=== PATIENT | male | born 1960 | race Caucasian/White ===

== ENCOUNTER 2018-12-16 17:33 | Inpatient (IN) | payer SELFPAY ==
--- NOTE | 2018-12-16 18:19 | RADIOLOGY REPORT (SQ) ---
EXAM DESCRIPTION: CHEST SINGLE VIEW COMPLETED DATE/TIME: 12/16/2018 6:10 pm REASON FOR STUDY: t2 aloc r/o stroke COMPARISON: None. EXAM PARAMETERS: NUMBER OF VIEWS: One view. TECHNIQUE: Single frontal radiographic view of the chest acquired. RADIATION DOSE: NA LIMITATIONS: None. FINDINGS: LUNGS AND PLEURA: No opacities, masses or pneumothorax. No pleural effusion. MEDIASTINUM AND HILAR STRUCTURES: No masses. Contour normal. HEART AND VASCULAR STRUCTURES: Heart normal in size. Normal vasculature. BONES: No acute findings. HARDWARE: None in the chest. OTHER: No other significant finding. IMPRESSION: NO ACUTE RADIOGRAPHIC FINDING IN THE CHEST. TECHNICAL DOCUMENTATION: JOB ID: [id number] [employer]- All Rights Reserved Reading location - IP/workstation name: [email or web address]
--- NOTE | 2018-12-16 18:33 | RADIOLOGY REPORT (SQ) ---
EXAM DESCRIPTION: CT HEAD WITHOUT COMPLETED DATE/TIME: 12/16/2018 6:21 pm REASON FOR STUDY: headache worst , altered COMPARISON: None. TECHNIQUE: Axial images acquired through the brain without intravenous contrast. Images reviewed wi th bone, brain and subdural windows. Additional sagittal and coronal reconstructions were generated. Images stored on PACS. All CT scanners at this facility use dose modulation, iterative reconstruction, and/or weight based d osing when appropriate to reduce radiation dose to as low as reasonably achievable (ALARA). [facility]: Dose Right [facility]: CareDose [facility]: Dose Right [facility]: Teradose 4D [facility]: [employer] RADIATION DOSE: CT Rad equipment meets quality standard of care and radiation dose reduction techniq ues were employed. CTDIvol: 53.2 mGy. DLP: 1070 mGy-cm. mGy. LIMITATIONS: None. FINDINGS: VENTRICLES: Normal size and contour. CEREBRUM: No masses. No hemorrhage. No midline shift. No evidence for acute infarction. Normal gra y/white matter differentiation. No areas of low density in the white matter. CEREBELLUM: No masses. No hemorrhage. No alteration of density. No evidence for acute infarction. EXTRAAXIAL SPACES: No fluid collections. No masses. ORBITS AND GLOBE: No intra- or extraconal masses. Normal contour of globe without masses. CALVARIUM: No fracture. PARANASAL SINUSES: Right maxillary sinus disease. SOFT TISSUES: No mass or hematoma. OTHER: No other significant finding. IMPRESSION: NORMAL BRAIN CT WITHOUT CONTRAST. EVIDENCE OF ACUTE STROKE: NO. COMMENT: Quality ID # [id number]: Final reports with documentation of one or more dose reduction techniques (e.g., Automated exposure control, adjustment of the mA and/or kV according to patient size, use of iterative reconstruction technique) TECHNICAL DOCUMENTATION: JOB ID: [id number] [employer]- All Rights Reserved Reading location - IP/workstation name: [email or web address]
--- NOTE | 2018-12-16 18:38 | EKG REPORT ---
SEVERITY:- NORMAL ECG - SINUS RHYTHM : Confirmed by: Antonia Terrazas MD 16-Dec-2018 18:37:05
--- NOTE | 2018-12-16 18:39 | ER Document Report ---
ED General - General Chief Complaint: Altered Mental Status Stated Complaint: POSSIBLE ETOH Time Seen by Provider: 12/16/18 18:27 Cannot obtain history due to: Altered mental status Notes: Patient is a 58-year-old male with no reported past medical history who presents by EMS due to altered mental status. The patient himself is unable to provide meaningful history. Please review course section for further history is provided by nursing assessment. In summary the patient apparently did not show for work for the past 6 days, staff from his workplace ejection, multiple occasions, found him to be wearing the same close and not apparently eating. Today when they checked on him they became extremely concerned given that he had still not change his clothes since Sunday of last week prompting him to contact EMS for transport to the hospital. TRAVEL OUTSIDE OF THE [place] IN LAST 30 DAYS: No - Related Data Allergies/Adverse Reactions: No Known Allergies Allergy (Unverified 12/16/18 22:38) Past Medical History - General Information source: Emergency Med Personnel - Social History Smoking Status: Current Every Day Smoker Frequency of alcohol use: Heavy Drug Abuse: None Lives with: Alone Family History: Reviewed & Not Pertinent Review of Systems - Review of Systems -: Yes ROS unobtainable due to patient's medical condition Physical Exam - Vital signs Vitals: Resp 19 12/16/18 17:38 Interpretation: Normal Notes: PHYSICAL EXAMINATION: GENERAL: Somewhat disheveled, appears generally unwell HEAD: Atraumatic, normocephalic. EYES: Pupils equal round and reactive to light, extraocular movements intact, sclera anicteric, conjunctiva are normal. ENT: nares patent, oropharynx clear without exudates. Moderate dry mucous membranes. NECK: Normal range of motion, supple without lymphadenopathy LUNGS: Breath sounds clear to auscultation bilaterally and equal. No wheezes rales or rhonchi. HEART: Regular rate and rhythm without murmurs ABDOMEN: Soft, nontender, normoactive bowel sounds. No guarding, no rebound. No masses appreciated. EXTREMITIES: Normal range of motion, no pitting or edema. No cyanosis. NEUROLOGICAL: Face symmetric. Tongue protrudes midline. Extraocular motions intact. Pupils are 2 mm and equally reactive. Somewhat slowed speech, normal gait. 5 out of 5 strength in both the distal and proximal upper and lower extremities bilaterally. Sensation is grossly intact throughout. Finger to nose testing normal. Pronator drift normal. PSYCH: Disoriented, oriented only to person SKIN: Warm, Dry, normal turgor, no rashes or lesions noted. Course - Re-evaluation Re-evalutation: 12/16/18 18:37 Patient presents altered, does not know the month or year, initially believes that Solo is still president but does correct himself several moments later. The patient apparently did not show for work since Sunday of last week and staff members had checked on him at his house on several occasions, found that he had not changed his clothing and became concerned that it appeared that the patient was very confused. On exam the patient is speaking clearly without any aphasia or dysarthria. He has no focal neurologic deficits on exam. He does appear quite dehydrated. Denies any alcohol or drug use other than occasional alcoholic beverages states he does not drink daily and has no history of alcohol withdrawal. CT the head without any evidence of intracranial bleed or mass. Chest x-ray is clear. Labs are pending. Differential is broad including toxic, rhabdomyolysis with associated uremia and renal failure, elevated ammonia with associated underlying liver failure, alcohol withdrawal. Seems very unlikely to be an encephalitis or meningitis given absence of fever, tachycardia and duration of symptoms. Will continue to monitor closely and reassess. 12/16/18 20:00 Patient's alcohol level has returned elevated and when I reassessed the patient he does admit that he drinks much more than he initially disclosed. The patient's picture at this point is quite consistent with Wernicke's encephalopathy. It does not appear that the patient has yet developed Korsakoff syndrome there is not appear to be any component of confabulation, he does not seem to try to be making anything up about what happened over the last several days and is very clear to state that he has no idea what is happened over the last 6 days. He has begun on IV thiamine [address] Haskins the hospitalist for admission. 12/16/182199 The patient apparently wanted to leave AGAINST MEDICAL ADVICE. The patient does not have capacity. He is unable to understand the risks and benefits of that decision at this point, is still disoriented, does not know the current year, month. I discussed with Dr. Haskins and the patient will be placed under involuntary commitment for his safety. - Vital Signs Vital signs: Temp Pulse Resp BP Pulse Ox 16 137/88 H 96 12/17/18 02:31 12/17/18 02:31 12/17/18 02:31 - Laboratory Result Diagrams: 12/16/18 18:33 12/16/18 18:33 Laboratory results interpreted by me: 12/16/18 12/16/18 12/16/18 17:53 18:33 18:33 Chloride 97 L Glucose 124 H POC Glucose 134 H AST 102 H ALT 103 H Creatine Kinase 50 L 48 L Urine Urobilinogen 12/16/18 20:16 Chloride Glucose POC Glucose AST ALT Creatine Kinase Urine Urobilinogen 2.0 H - Diagnostic Test Radiology reviewed: Image reviewed, Reports reviewed Radiology results interpreted by me: 12/16/18 18:40 CT head: No acute intracranial bleed or mass Chest x-ray: No acute infiltrate - EKG Interpretation by Me Additional EKG results interpreted by me: 12/16/18 18:40 Sinus rhythm, rate 89. QTC 434. No ST elevations or depressions. Discharge - Discharge Clinical Impression: Wernickes encephalopathy, Alcohol abuse Altered mental status Qualifiers: Altered mental status type: disorientation Qualified Code(s): R41.0 - Disorientation, unspecified Condition: Fair Disposition: ADMITTED INPATIENT Admitting Provider: Hospitalist Unit Admitted: Telemetry
[2018-12-16 18:47] LABS: ABSOLUTE EOSINOPHILS # (AUTO) 0.1 10^3/uL (0.0-0.6); ABSOLUTE LYMPHOCYTES (AUTO) 2.1 10^3/uL (0.5-4.7); ABSOLUTE MONOCYTES (AUTO) 0.5 10^3/uL (0.1-1.4); BASOPHILS % (AUTO) 0.3 % (0-2); EOSINOPHILS % (AUTO) 1.5 % (0-6); HEMATOCRIT 49.2 % (37.9-51.0); HEMOGLOBIN 16.6 g/dL (13.5-17.0); LYMPHOCYTES % (AUTO) 44.4 % (13-45); MEAN CORPUSCULAR HEMOGLOBIN 30.4 pg (27.0-33.4); MEAN CORPUSCULAR HGB CONC 33.8 g/dL (32.0-36.0); MEAN CORPUSCULAR VOLUME 90 fl (80-97); MONOCYTES % (AUTO) 10.8 % (3-13); PLATELET COUNT 195 10^3/uL (150-450); RED BLOOD COUNT 5.47 10^6/uL (4.35-5.55); RED CELL DISTRIBUTION WIDTH 13.2 % (11.5-14.0); TOTAL CELLS COUNTED % (AUTO) 100 %; WHITE BLOOD COUNT 4.8 10^3/uL (4.0-10.5)
[2018-12-16 19:06] LABS: ALANINE AMINOTRANSFERASE 103 U/L (21-72); ALBUMIN 4.7 g/dL (3.5-5.0); ALCOHOL 163 mg/dL (NONE DETECTED); ALKALINE PHOSPHATASE 121 U/L (38-126); ANION GAP 13 (5-19); ASPARTATE AMINO TRANSFERASE 102 U/L (17-59); BILIRUBIN,DIRECT 0.3 mg/dL (0.0-0.4); BILIRUBIN,TOTAL 0.8 mg/dL (0.2-1.3); BLOOD UREA NITROGEN 8 mg/dL (7-20); CALCIUM 9.3 mg/dL (8.4-10.2); CARBON DIOXIDE 30 mmol/L (22-30); CHLORIDE 97 mmol/L (98-107); CREATINE KINASE 50 U/L (55-170); GLUCOSE 124 mg/dL (75-110); POTASSIUM 4.7 mmol/L (3.6-5.0); TOTAL PROTEIN 7.8 g/dL (6.3-8.2)
[2018-12-16] MEDS ORDERED: THIAMINE HCL 500 MG in NORMAL SALINE 250 ML IV SCH ×2 (20:00→22:00)
[2018-12-16] MEDS ORDERED: MAGNESIUM HYDROXIDE SUSP 30 ML UDCUP PO PRN (20:05)
[2018-12-16] MEDS ORDERED: IPRATROPIUM/ALBUTEROL 0.5-2.5 MG/3 ML AMPUL NEB PRN (20:05)
[2018-12-16 20:28] LABS: APPEARANCE,URINE CLEAR; BILIRUBIN,URINE NEGATIVE (NEGATIVE); COLOR,URINE YELLOW; GLUCOSE, URINE NEGATIVE (NEGATIVE); KETONES,URINE NEGATIVE (NEGATIVE); LEUKOCYTE ESTERASE,URINE NEGATIVE (NEGATIVE); NITRITE,URINE NEGATIVE (NEGATIVE); PROTEIN,URINE NEGATIVE (NEGATIVE); URINE SPECIFIC GRAVITY 1.005
[2018-12-16 20:45] LABS: URINE AMPHETAMINES SCREEN NEGATIVE; URINE BARBITURATES SCREEN NEGATIVE; URINE BENZODIAZEPINES SCREEN NEGATIVE; URINE COCAINE SCREEN NEGATIVE; URINE MARIJUANA (THC) SCREEN UNCONFIRMED POSITIVE; URINE METHADONE SCREEN NEGATIVE; URINE PHENCYCLIDINE SCREEN NEGATIVE
[2018-12-16 20:45] LABS: PHOSPHORUS 4.4 mg/dL (2.5-4.5)
[2018-12-16] MEDS ORDERED: LACTULOSE SYRUP 20 GM/30 ML UDCUP PO ONE (21:00)
[2018-12-16] MEDS ORDERED: LORAZEPAM INJ 2 MG/1 ML VIAL IV ONE (22:50)
[2018-12-16] MEDS: DIAZEPAM 5 MG TABLET PO SCH (22:58)
[2018-12-16] MEDS: HEPARIN SOD (PORCINE) 5,000 UNIT/ML 1 ML SYRINGE SUBCUT SCH (23:47)
[2018-12-17] MEDS: IPRATROPIUM/ALBUTEROL 0.5-2.5 MG/3 ML AMPUL NEB SCH ×4 (00:10→23:30)
[2018-12-17] MEDS: LORAZEPAM INJ 2 MG/1 ML VIAL IV PRN ×3 (01:54→21:52)
--- NOTE | 2018-12-17 03:47 | PDOC H&P ---
History of Present Illness Admission Date/PCP: 12/16/18 20:32 Patient complains of: Amnesia History of Present Illness: MARY RUDOLPH is a 58 year old male with a past medical history of alcoholism who is a [place] resident visiting [facility] for work. He is found by his coworkers after several days of work absence. He is found lethargic, confused and amnesic. In the emergency room he is found with alcohol intoxication but awake and alert oriented x2 unable to recall events of the last week. He denies past medical history, current medications, headache fever stiff neck. Patient does admit a history of alcohol withdrawal with seizure approximately 6 months ago. Past Medical History Psychiatric Medical History: Reports: Alcohol Dependency, Depression Past Surgical History Past Surgical History: Reports: None Social History Information Source: Patient, [facility] Records Lives with: Alone Smoking Status: Never Smoker Frequency of Alcohol Use: Heavy Hx Recreational Drug Use: No Drugs: Marijuana Hx Prescription Drug Abuse: No - Advance Directive Resuscitation Status: Full Code Family History Family History: CAD, CVA, Other - Alcoholism Parental Family History Reviewed: Yes Children Family History Reviewed: Yes Sibling(s) Family History Reviewed.: Yes Medication/Allergy Allergies/Adverse Reactions: No Known Allergies Allergy (Unverified 12/16/18 22:38) Review of Systems ROS unobtainable: Due to mental status - Unable to recall Physical Exam Vital Signs: Temp Pulse Resp BP Pulse Ox 16 137/88 H 96 12/17/18 02:31 12/17/18 02:31 12/17/18 02:31 Intake & Output 12/15/18 12/16/18 12/17/18 11:59 11:59 11:59 Intake Total 255 Balance 255 Weight 25.6 kg General appearance: PRESENT: no acute distress, cooperative, disheveled, thin, other - Severe facial seborrheic dermatitis Head exam: PRESENT: atraumatic, normocephalic Eye exam: PRESENT: conjunctiva pink, EOMI, PERRLA. ABSENT: scleral icterus Ear exam: PRESENT: normal external ear exam Mouth exam: PRESENT: moist, tongue midline Neck exam: ABSENT: carotid bruit, JVD, lymphadenopathy, thyromegaly Respiratory exam: PRESENT: clear to auscultation janell. ABSENT: rales, rhonchi, wheezes Cardiovascular exam: PRESENT: RRR. ABSENT: diastolic murmur, rubs, systolic murmur Pulses: PRESENT: normal dorsalis pedis pul Vascular exam: PRESENT: normal capillary refill GI/Abdominal exam: PRESENT: normal bowel sounds, soft. ABSENT: distended, guarding, mass, organolmegaly, rebound, tenderness Rectal exam: PRESENT: deferred Extremities exam: PRESENT: full ROM, +1 edema. ABSENT: calf tenderness, clubbing, pedal edema Neurological exam: PRESENT: alert, altered, awake, oriented to person, CN II-XII grossly intact, other - Unable to recall events over the last 5-6 days. ABSENT: oriented to place, oriented to time, oriented to situation Skin exam: PRESENT: dry, intact, warm. ABSENT: cyanosis, rash Results Laboratory Results: 12/16/18 18:33 12/16/18 18:33 12/16/18 12/16/18 12/16/18 18:33 18:33 18:33 WBC 4.8 RBC 5.47 Hgb 16.6 Hct 49.2 MCV 90 MCH 30.4 MCHC 33.8 RDW 13.2 Plt Count 195 Seg Neutrophils % 43.0 Lymphocytes % 44.4 Monocytes % 10.8 Eosinophils % 1.5 Basophils % 0.3 Absolute Neutrophils 2.0 Absolute Lymphocytes 2.1 Absolute Monocytes 0.5 Absolute Eosinophils 0.1 Absolute Basophils 0.0 Sodium 140.0 Potassium 4.7 Chloride 97 L Carbon Dioxide 30 Anion Gap 13 BUN 8 Creatinine 0.62 Est GFR ( Amer) > 60 Est GFR (Non-Af Amer) > 60 Glucose 124 H Lactic Acid Calcium 9.3 Phosphorus Total Bilirubin 0.8 AST 102 H ALT 103 H Alkaline Phosphatase 121 Ammonia Total Protein 7.8 Albumin 4.7 TSH 0.93 Urine Color Urine Appearance Urine pH Ur Specific [place] Urine Protein Urine Glucose (UA) Urine Ketones Urine Blood Urine Nitrite Ur Leukocyte Esterase Urine WBC (Auto) 12/16/18 12/16/18 12/16/18 18:33 20:16 21:26 WBC RBC Hgb Hct MCV MCH MCHC RDW Plt Count Seg Neutrophils % Lymphocytes % Monocytes % Eosinophils % Basophils % Absolute Neutrophils Absolute Lymphocytes Absolute Monocytes Absolute Eosinophils Absolute Basophils Sodium Potassium Chloride Carbon Dioxide Anion Gap BUN Creatinine Est GFR ( Amer) Est GFR (Non-Af Amer) Glucose Lactic Acid 1.8 Calcium Phosphorus 4.4 Total Bilirubin AST ALT Alkaline Phosphatase Ammonia Total Protein Albumin TSH Urine Color YELLOW Urine Appearance CLEAR Urine pH 6.0 Ur Specific [place] 1.005 Urine Protein NEGATIVE Urine Glucose (UA) NEGATIVE Urine Ketones NEGATIVE Urine Blood NEGATIVE Urine Nitrite NEGATIVE Ur Leukocyte Esterase NEGATIVE Urine WBC (Auto) 2 12/16/18 21:26 WBC RBC Hgb Hct MCV MCH MCHC RDW Plt Count Seg Neutrophils % Lymphocytes % Monocytes % Eosinophils % Basophils % Absolute Neutrophils Absolute Lymphocytes Absolute Monocytes Absolute Eosinophils Absolute Basophils Sodium Potassium Chloride Carbon Dioxide Anion Gap BUN Creatinine Est GFR ( Amer) Est GFR (Non-Af Amer) Glucose Lactic Acid Calcium Phosphorus Total Bilirubin AST ALT Alkaline Phosphatase Ammonia < 8.7 L Total Protein Albumin TSH Urine Color Urine Appearance Urine pH Ur Specific [place] Urine Protein Urine Glucose (UA) Urine Ketones Urine Blood Urine Nitrite Ur Leukocyte Esterase Urine WBC (Auto) 12/16/18 12/16/18 12/16/18 18:33 18:33 18:33 Creatine Kinase 50 L 48 L Troponin I < 0.012 Impressions: Head CT 12/16/18 00:00 IMPRESSION: NORMAL BRAIN CT WITHOUT CONTRAST. EVIDENCE OF ACUTE STROKE: NO. Chest X-Ray 12/16/18 17:40 IMPRESSION: NO ACUTE RADIOGRAPHIC FINDING IN THE CHEST. Assessment & Plan - Diagnosis (1) Alcohol abuse Is this a current diagnosis for this admission?: Yes Plan: With history of alcohol withdrawal, thiamine and Ativan as needed (2) Altered mental status Qualifiers: Altered mental status type: disorientation Qualified Code(s): R41.0 - Disorientation, unspecified Is this a current diagnosis for this admission?: Yes Plan: Multifactorial, acute alcohol intoxication and cannabis use (3) Wernickes encephalopathy Is this a current diagnosis for this admission?: Yes Plan: Strongly suggested by history. Supportive care, thiamine and folate, physical therapy evaluation - Time Time Spent: 50 to 70 Minutes - Inpatient Certification Medical Necessity: Need Close Monitoring Due to Risk of Patient Decompensation
[2018-12-17] MEDS: HEPARIN SOD (PORCINE) 5,000 UNIT/ML 1 ML SYRINGE SUBCUT SCH ×3 (05:21→21:43)
[2018-12-17 07:36] LABS: HEMATOCRIT 43.1 % (37.9-51.0); HEMOGLOBIN 14.7 g/dL (13.5-17.0); MEAN CORPUSCULAR HEMOGLOBIN 30.7 pg (27.0-33.4); MEAN CORPUSCULAR HGB CONC 34.1 g/dL (32.0-36.0); MEAN CORPUSCULAR VOLUME 90 fl (80-97); PLATELET COUNT 193 10^3/uL (150-450); RED BLOOD COUNT 4.79 10^6/uL (4.35-5.55); RED CELL DISTRIBUTION WIDTH 13.3 % (11.5-14.0); WHITE BLOOD COUNT 5.6 10^3/uL (4.0-10.5)
[2018-12-17 07:58] LABS: ALANINE AMINOTRANSFERASE 86 U/L (21-72); ALKALINE PHOSPHATASE 91 U/L (38-126); ANION GAP 6 (5-19); ASPARTATE AMINO TRANSFERASE 87 U/L (17-59); BILIRUBIN,DIRECT 0.2 mg/dL (0.0-0.4); BILIRUBIN,TOTAL 1.2 mg/dL (0.2-1.3); BLOOD UREA NITROGEN 13 mg/dL (7-20); CALCIUM 9.2 mg/dL (8.4-10.2); CARBON DIOXIDE 32 mmol/L (22-30); CHLORIDE 100 mmol/L (98-107); GLUCOSE 128 mg/dL (75-110); POTASSIUM 4.5 mmol/L (3.6-5.0); SODIUM 138.4 mmol/L (137-145)
[2018-12-17] MEDS: DIAZEPAM 5 MG TABLET PO SCH ×2 (09:39→21:10)
[2018-12-17] MEDS: DOCUSATE SODIUM 100 MG CAPSULE PO SCH ×2 (09:39→17:51)
[2018-12-17] MEDS ORDERED: THIAMINE HCL 100 MG, FOLIC ACID 1 MG in NORMAL SALINE 250 ML IV SCH (10:00)
[2018-12-17] MEDS: NORMAL SALINE 1000 ML 1,000 ML IV PRN ×2 (10:05→20:05)
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
[2018-12-17] MEDS ORDERED: IBUPROFEN 600 MG TABLET PO PRN (16:13)
[2018-12-17] MEDS: FOLIC ACID 1 MG TABLET PO SCH (17:52)
--- NOTE | 2018-12-17 20:19 | Progress Note ---
Provider Note Provider Note: 58 y.o. M admitted to [facility] for AMS. The patient is from [place] but is currently living/working in [place]. 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 When they went to his apartment, he was wearing the same clothes for multiple days, disheveled, and there was no food in his cabinets. There were reportedly multiple open containers of beer. The patient arrived to the ED lethargic and unable to accurately answer questions. Initial diagnosis was Wernike's encephalopathy. Upon evaluation this morning, the patient is awake, alert, oriented x 3. He is able to follow commands. PERRLA. 5/5 strength in all 4 extremities. GCS 15. The patient does not admit to how much alcohol he has been drinking on a daily basis, but he does state that his last ETOH intake was Sunday. According to ED MD, the patient admitted to a hx of ETOH w/d seizures. The patient was evaluated by psych (at the request of the smocking machine operator), who recommend Depakote 500mg PO BID. 1. AMS - unlikely Wernike's encephalopathy given the patient's improving mental status. Additionally, co-workers report the patient is normally very reliable, punctual, and does not exhibit any cognitive decline. It is more likely that the patient was binge drinking over the course of many days. Head CT negative. Neuro exam relatively benign, patient states he 'can't remember' how much he has been drinking over the last few days. 2. ETOH use - blood alcohol level upon admission was 139. Daily folate and thiamine. Scheduled valium. PRN ativan. Plan: If the patient does not exhibit ETOH w/d, anticipate discharge home tomorrow. If the patient begins to demonstrate ETOH w/d, will need to remain inpatient.
[2018-12-17] MEDS: DIVALPROEX SODIUM 500 MG TAB.SR.24H PO SCH (21:43)
[2018-12-18] MEDS: HEPARIN SOD (PORCINE) 5,000 UNIT/ML 1 ML SYRINGE SUBCUT SCH (05:29)
[2018-12-18] MEDS: NORMAL SALINE 1000 ML 1,000 ML IV PRN (05:32)
[2018-12-18] MEDS: LORAZEPAM INJ 2 MG/1 ML VIAL IV PRN (05:32)
[2018-12-18 07:08] LABS: HEMATOCRIT 44.3 % (37.9-51.0); MEAN CORPUSCULAR HEMOGLOBIN 30.6 pg (27.0-33.4); MEAN CORPUSCULAR HGB CONC 33.9 g/dL (32.0-36.0); MEAN CORPUSCULAR VOLUME 90 fl (80-97); PLATELET COUNT 161 10^3/uL (150-450); RED CELL DISTRIBUTION WIDTH 13.3 % (11.5-14.0); WHITE BLOOD COUNT 4.8 10^3/uL (4.0-10.5)
[2018-12-18 07:26] LABS: ALANINE AMINOTRANSFERASE 79 U/L (21-72); ALBUMIN 4.2 g/dL (3.5-5.0); ALKALINE PHOSPHATASE 128 U/L (38-126); ANION GAP 6 (5-19); ASPARTATE AMINO TRANSFERASE 82 U/L (17-59); BILIRUBIN,DIRECT 0.3 mg/dL (0.0-0.4); BILIRUBIN,TOTAL 1.2 mg/dL (0.2-1.3); BLOOD UREA NITROGEN 19 mg/dL (7-20); CALCIUM 9.4 mg/dL (8.4-10.2); CARBON DIOXIDE 31 mmol/L (22-30); CHLORIDE 103 mmol/L (98-107); GLUCOSE 106 mg/dL (75-110); POTASSIUM 4.9 mmol/L (3.6-5.0); SODIUM 139.9 mmol/L (137-145); TOTAL PROTEIN 7.3 g/dL (6.3-8.2)
[2018-12-18] MEDS: IPRATROPIUM/ALBUTEROL 0.5-2.5 MG/3 ML AMPUL NEB SCH (08:25)
[2018-12-18] MEDS: DIAZEPAM 5 MG TABLET PO SCH (09:47)
[2018-12-18] MEDS: FOLIC ACID 1 MG TABLET PO SCH (09:47)
[2018-12-18] MEDS: DIVALPROEX SODIUM 500 MG TAB.SR.24H PO SCH (09:47)
[2018-12-18] MEDS: DOCUSATE SODIUM 100 MG CAPSULE PO SCH (09:47)
[2018-12-18] MEDS ORDERED: THIAMINE HCL 100 MG TABLET PO SCH (10:00)
[2018-12-18 13:23] VITALS: BP 127/67
--- NOTE | 2018-12-20 09:30 | PDOC DISCHARGE SUMMARY ---
General - Admit/Disc Date/PCP Admission Date/Primary Care Provider: 12/16/18 20:32 Discharge Date: 12/18/18 - Discharge Diagnosis (1) Altered mental status Is this a current diagnosis for this admission?: Yes (2) Alcohol abuse Is this a current diagnosis for this admission?: Yes (3) Wernickes encephalopathy Is this a current diagnosis for this admission?: No - Additional Information Resuscitation Status: Full Code Discharge Diet: As Tolerated Discharge Activity: Activity As Tolerated Home Medications: No Home Medications 12/17/18 History of Present Illness History of Present Illness: MARY RUDOLPH is a 58 year old male with a past medical history of alcoholism who is a [place] resident visiting [facility] for work. He is found by his coworkers after several days of work absence. He is found lethargic, confused and amnesic. In the emergency room he is found with alcohol intoxication but awake and alert oriented x2 unable to recall events of the last week. He denies past medical history, current medications, headache fever stiff neck. Patient does admit a history of alcohol withdrawal with seizure approximately 6 months ago. Hospital Course Hospital Course: 58 y.o. M admitted to [facility] for AMS. The patient is from [place] but is currently living/working in [place]. 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 When they went to his apartment, he was wearing the same clothes for multiple days, disheveled, and there was no food in his cabinets. There were reportedly multiple open containers of beer. The patient arrived to the ED lethargic and unable to accurately answer questions. Initial diagnosis was Wernike's encephalopathy. Over the course of his admission, the patient became more awake, alert, and oriented. He was able to follow commands. PERRLA. 5/5 strength in all 4 extremities. GCS 15. The patient does not admit to how much alcohol he has been drinking on a daily basis, but he does state that his last ETOH intake was 24hrs ago. According to ED MD, the patient admitted to a hx of ETOH w/d seizures. The patient was evaluated by psych (at the request of the principal technical writer), who recommend Depakote 500mg PO BID. Unlikely Wernike's encephalopathy given the sudden onset of symptoms and the patient's improving mental status. Wernike's encephalopathy typically progresses over a long period of time. Additionally, co-workers report the patient is normally very reliable, punctual, and does not exhibit any cognitive decline. It is more likely that the patient was binge drinking over the course of many days. Head CT negative. Neuro exam relatively benign, patient states he 'can't remember' how much he has been drinking over the last few days and if not forthcoming with how much he drinks on a daily basis. On the final day of his admission, the patient was completely alert and oriented. He was able to ambulate without difficulty. Neuro exam was completely normal. The patient was instructed to abstain from ETOH and the danger of ETOH withdrawal. He stated understanding. For further information regarding the patient's hospitalization, please refer to EMR. Physical Exam Vital Signs: Temp Pulse Resp BP Pulse Ox 98.1 F 86 16 127/67 H 95 12/18/18 13:20 12/18/18 13:20 12/18/18 13:20 12/18/18 13:20 12/18/18 13:20 Results Laboratory Results: 12/18/18 06:38 12/18/18 06:38 12/16/18 12/16/18 12/16/18 18:33 18:33 18:33 Creatine Kinase 50 L 48 L Troponin I < 0.012 Impressions: Head CT 12/16/18 00:00 IMPRESSION: NORMAL BRAIN CT WITHOUT CONTRAST. EVIDENCE OF ACUTE STROKE: NO. Chest X-Ray 12/16/18 17:40 IMPRESSION: NO ACUTE RADIOGRAPHIC FINDING IN THE CHEST. Status: Imported from PACS Qualifiers - * PATIENT BEING DISCHARGED WITH ANY OF THE FOLLOWING DIAGNOSIS: No
== END 2018-12-18 13:45 | disposition home or self-care (01) | DRG 897 ==
LOC: ER 17:33 → EH 20:32 → 5 12-17 13:39
PROVIDERS: ADMIT Internal Medicine; ATTEND Internal Medicine
DX: F10.20 Alcohol dependence, uncomplicated (principal); E51.2 Wernicke's encephalopathy; E86.0 Dehydration; F31.9 Bipolar disorder, unspecified; F17.210 Nicotine dependence, cigarettes, uncomplicated; Y90.6 Blood alcohol level of 120-199 mg/100 ml; Z60.2 Problems related to living alone
CPT/HCPCS: 36415; 70450; 71045; 80053; 80307; 81001; 82140; 82375; 82550; 82962; 83605; 84100; 84443; 84484; 85025; 85027; 93005; 93010; 94640; 99285; J1644; J2060; J3411; J7030; J7050; J7620